=== PATIENT | female | born 1990 | race Caucasian/White ===

== ENCOUNTER 2017-03-16 10:58 | Emergency (ER) | payer OTHER ==
[~2017-03-16] VITALS: Ht 157.5 cm; Wt 65.8 kg
[~2017-03-16 10:58] MED LIST: FLEXERIL 10MG (10 MG PO; IBUPROFEN800 M1 PO; MINASTRIN 24 FE1 KIT PO; MOTRIN800 MG PO; SUMATRIPTAN SUC50 MG
--- NOTE | 2017-03-16 11:58 | ED GI/GU/ABDOMINAL COMPLAINT ---
History of Present Illness General Chief Complaint: Nausea, Vomiting, Diarrhea Stated Complaint: SIB DR. PERALES 6 WEEKS PREGANNT, VOMITING Source: patient, family, old records Exam Limitations: no limitations Vital Signs & Intake/Output Vital Signs & Intake/Output Vital Signs Date Time Temp Pulse Resp B/P B/P Pulse O2 O2 Flow FiO2 Mean Ox Delivery Rate 03/16 1609 98.0 100 16 124/79 99 Room Air 03/16 1455 100.5 ED Intake and Output 03/17 0000 03/16 1200 Intake Total 2000 Output Total Balance 1999 Intake, IV 2000 Patient 65.771 kg Weight Weight Reported by Patient Measurement Method Allergies Coded Allergies: No Known Allergies (03/16/17) Reconcile Medications Ibuprofen 800 MG TABLET 800 MG PO Q6P PRN UTERINE CRAMPING Ondansetron (Zofran Odt) 4 MG TAB.RAPDIS 1 TAB SL TID NAUSEA Triage Note: 6 WEEK FEMALE TO TRIAGE FOR C/C NAUSEA AND VOMITING SINCE O400. PT ADVISED TO COME ED BY OB: DR. CANA[place]. PT'S DAUGHTER HAS FLU AT HOME AND PT IS CURRENTLY ON THIRD DAY OF TAMIFLU. BODY ACHES AND CHILLS. PT 100.4 TEMP IN TRIAGE. Triage Nurses Notes Reviewed? yes ? Y Is pt currently ? No HPI: 26F no PMH, currently 6 weeks presentting with 7 hours of intractable nausea and vomiting. Woke up from sleep at 4am to vomit, and has been unable to keep anything down since. She has significant nausea and abdominal cramping. She denies diarrhea, dysuria, constipation, vaginal bleeding/spotting/discharge. She had a mild fever this morning. She is otherwise well and feels thirsty. Last meal was rice and beans last, SO ate as well and is not sick. Her one year old child was recently diagnosed with flu and patient and family are all on Tamiflu. She denies upper respiratory symptoms. She did not have hyperemesis with last . Past History Travel History Traveled to [place] past 21 day No Medical History Any Pertinent Medical History? 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 No Review of Systems Review of Systems Constitutional: Reports: no symptoms. EENTM: Reports: no symptoms. Respiratory: Reports: no symptoms. Cardiovascular: Reports: no symptoms. GI: Reports: see HPI. Genitourinary: Reports: no symptoms. Musculoskeletal: Reports: no symptoms. Skin: Reports: no symptoms. Neurological/Psychological: Reports: no symptoms. Hematologic/Endocrine: Reports: no symptoms. Immunologic/Allergic: Reports: no symptoms. All Other Systems: Reviewed and Negative Physical Exam Physical Exam General Appearance: well developed/nourished, mild distress Head: atraumatic, normal appearance Eyes: Bilateral: normal appearance, normal inspection. Ears, Nose, Throat, Mouth: dry mucous membranes Neck: normal inspection, supple, full range of motion Respiratory: normal breath sounds, no respiratory distress Cardiovascular: regular rate/rhythm Gastrointestinal: soft, non-tender Back: normal inspection, normal range of motion Extremities: normal range of motion Neurologic/Psych: awake, alert, oriented x 3, normal mood/affect Skin: intact, normal color, warm/dry Core Measures ACS in differential dx? No Sepsis Present: No Sepsis Focused Exam Completed? No Progress Differential Diagnosis: AAA, AMI, appendicitis, biliary colic, bowel obstruction , colon cancer, cholecystitis, diverticulitis, ectopic , endometritis, esophageal varices, gastritis, hepatitis, hernia, hemorrhoids, ischemic bowel, inflamm bowel dis, intrauterine , kidney stone, [place] tear, ovarian cyst, ovarian torsion, pancreatitis, PID/cervicitis, peptic ulcer, PUD/ GERD, perforated viscous, SBO, threatened AB, UTI/pyelo Plan of Care: Orders Procedure Date/time Status URINALYSIS 03/16 1447 Complete Current Medications Sig/Laith Start time Last Medication Dose Stop Time Status Admin Doxylamine Succinate/ 2 TAB ONCE ONE 03/16 1530 CAN Pyridoxine 03/16 1531 (Diclegis) Laboratory Tests 03/16/17 1447: Urinalysis LIGHT H, Urine Color YEL, Urine Clarity HAZY H, Urine pH 7.0, Ur Specific [place] 1.020, Urine Protein TRACE H, Urine Ketones 15 H, Urine Nitrite NEG, Urine Bilirubin NEG, Urine Urobilinogen 0.2, Ur Leukocyte Esterase TRACE H, Ur Microscopic SEDIMENT EXAMINED, Urine RBC RARE, Urine WBC 1-3 H, Ur Epithelial Cells FEW, Urine Bacteria MANY H, Urine Mucus FEW, Urine Hemoglobin NEG, Urine Glucose NEG Improved following Zofran, symptoms remitted and was able to eat and drink. Became more nauseous after, but improved with Zofran and did not vomit. Will discharge hme with PRN Zofran, will follow up with OB tomorrow, instructed to slowly advance diet. Initial ED EKG: none Departure Departure Disposition: HOME OR SELF CARE Condition: Stable Clinical Impression Primary Impression: Acute gastroenteritis Referrals: De CLARK,Josy (PCP/Family) Additional Instructions: Follow up with your rn telemetry tomorrow. Eat and drink slowly, what you can, and what does not make you vomit. If your fever worsens, you cannot eat or drink anything, you have worsening abdominal pain, any vaginal discharge, or any new or worsening symptoms, return to emergency room immediately. Departure Forms: Customer Survey General Discharge Information Prescriptions: Current Visit Scripts Ondansetron (Zofran Odt) 1 TAB SL TID #15 TAB
[2017-03-16 12:20] LABS: ABSOLUTE BASOPHIL COUNT 0 /CUMM (0.0-0.2); ABSOLUTE EOSINOPHIL COUNT 0 /CUMM (0.0-0.7); ABSOLUTE GRANULOCYTE CT 13.8 /CUMM (1.4-6.5); ABSOLUTE LYMPH COUNT 0.4 /CUMM (1.2-3.4); ABSOLUTE MONOCYTE COUNT 0.4 /CUMM (0.10-0.60); BASOPHIL % 0 % (0.0-2.0); EOSINOPHIL % 0.1 % (0-5); GRANULOCYTE % 94.2 % (42.2-75.2); HEMATOCRIT 38.8 % (37-47); MEAN CORPUSCULAR HGB 28.8 PG (27.0-31.0); MEAN CORPUSCULAR HGB CONC 33.4 G/DL (33.0-37.0); MEAN CORPUSCULAR VOLUME 86.3 FL (81.0-99.0); MEAN PLATELET VOLUME 9.5 FL (7.4-10.4); PLATELET COUNT 268 /CUMM (130-400); RBC DISTRIBUTION WIDTH 12.4 % (11.5-14.5)
[2017-03-16 12:38] LABS: WHITE BLOOD CELL COUNT 14.6 /CUMM (4.8-10.8)
[2017-03-16] MEDS ORDERED: ZOFRAN ODT4 M1 SL (15:50)
[2017-03-16 16:09] VITALS: BP 124/79
== END 2017-03-16 16:10 ==
LOC: ERH 10:58
PROVIDERS: Internal Medicine
DX: O99.611 Diseases of the digestive system complicating pregnancy, first trimester (principal); K52.9 Noninfective gastroenteritis and colitis, unspecified; Z3A.01 Less than 8 weeks gestation of pregnancy
CPT/HCPCS: 81001; 87804; 87804-59; 96361; 96374; 96375; J2405; J2765

== ENCOUNTER 2017-11-03 17:00 | Inpatient (IN) | payer OTHER ==
[~2017-11-03] VITALS: Ht 157.5 cm; Wt 73.5 kg
[~2017-11-03 17:00] MED LIST changes: +ZOFRAN ODT4 M1 SL
[2017-11-03 17:51] VITALS: BP 136/86
[2017-11-03] MEDS ORDERED: PRENATABS RX T1 EACH PO (17:54)
[2017-11-03] MEDS ORDERED: B-121000 MC3 PO (17:56)
[2017-11-03] MEDS ORDERED: DHA100 MG PO (17:58)
[2017-11-03 18:28] LABS: ABSOLUTE BASOPHIL COUNT 0 /CUMM (0.0-0.2); ABSOLUTE EOSINOPHIL COUNT 0.1 /CUMM (0.0-0.7); ABSOLUTE GRANULOCYTE CT 8.6 /CUMM (1.4-6.5); ABSOLUTE LYMPH COUNT 2.7 /CUMM (1.2-3.4); ABSOLUTE MONOCYTE COUNT 0.9 /CUMM (0.10-0.60); BASOPHIL % 0.3 % (0.0-2.0); EOSINOPHIL % 0.4 % (0-5); GRANULOCYTE % 70.1 % (42.2-75.2); HEMATOCRIT 33.3 % (37-47); MEAN CORPUSCULAR HGB 29.4 PG (27.0-31.0); MEAN CORPUSCULAR HGB CONC 34.5 G/DL (33.0-37.0); MEAN CORPUSCULAR VOLUME 85.2 FL (81.0-99.0); MEAN PLATELET VOLUME 10.6 FL (7.4-10.4); PLATELET COUNT 209 /CUMM (130-400); RBC DISTRIBUTION WIDTH 13.9 % (11.5-14.5); RED BLOOD CELL CT 3.91 /CUMM (4.20-5.40); WHITE BLOOD CELL COUNT 12.3 /CUMM (4.8-10.8)
--- NOTE | 2017-11-03 18:43 | History & Physical ---
General Information and HPI MD Statement: I have seen and personally examined ADRIA ROY and documented this H&P. The patient is a 26 year old female at [38] weeks and [6] days gestation who presented with a chief complaint of [LOF]. Source of Information: patient Exam Limitations: no limitations History of Present Illness: 26yo, at 38 6/7wks, c/o LOF since 11 AM, denies ctx, no VB , reports GFM. care started at 8 wks, uncomplicated thus far. GBS negative. 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 Past Pregnancies Past Pregnancies: Date of Delivery: 01/29/2016 Gestational Age: 39 4/7wks Weight: 7lb1oz Type of Delivery: vaginal Medical History Neurological: migraine EENT: NONE Cardiovascular: NONE Respiratory: NONE Gastrointestinal: NONE Hepatic: NONE Renal: NONE Musculoskeletal: NONE Psychiatric: anxiety Endocrine: NONE Blood Disorders: NONE Cancer(s): NONE 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 spouse Primary Language: Greek Smoking Status: Never Smoked ETOH Use: denies use Illicit Drug Use: denies illicit drug use Review of Systems Review of Systems Constitutional: Reports: no symptoms. EENTM: Reports: no symptoms. Cardiovascular: Reports: no symptoms. Respiratory: Reports: no symptoms. GI: Reports: no symptoms. Genitourinary: Reports: see HPI. Musculoskeletal: Reports: no symptoms. Skin: Reports: no symptoms. Neurological/Psychological: Reports: no symptoms. Hematologic/Endocrine: Reports: no symptoms. Immunologic/Allergic: Reports: no symptoms. All Other Systems: Reviewed and Negative Exam & Diagnostic Data Last 24 Hrs of Vital Signs/I&O Vital Signs Date Time Temp Pulse Resp B/P B/P Pulse O2 O2 Flow FiO2 Mean Ox Delivery Rate 11/03 1751 136/86 Obstetric Exam Wgt Gained During : 12lb Pelvimetry: adequate Dilation (cm): 0 (FT) Effacement (%): 50 Station: -3 Membranes: SROM Fluid: clear Fundal Height (cm): 38 Multiple Gestation? No Contractions: occasional #1 - FHR Baseline: 140 Category: 1 Estimated Weight: 3500g Presentation: vertex Patient for Induction? No Physical Exam: VSS General: NAD Abdomen: gravid, soft, nontender. Ext: DCT (-) Labs Blood Type & Rh: B positive Antibody Screen: negative Hct/Hgb & Platelets #1: 11.8/37.9%,[id number] Hct/Hgb & Platelets #2: 11.3/37.5%,[id number] Rubella: immune VDRL #1: negative VDRL #2: negative HbsAg: negative HIV #1: negative HIV #2 negative 1 Hr P 3 Hr P/126/115/110 Group B Strep: negative Initial Ultrasound: IUP at 8 wks Anatomy Ultrasound: nl Genetic Testing: nl Last 24 Hrs of Labs/Chalo: Laboratory Tests 11/03/17 1800: RPR Titer/FTA Pending 11/03/17 1800: CBC w Diff NO MAN DIFF REQ, RBC 3.91 L, MCV 85.2, MCH 29.4, MCHC 34.5, RDW 13.9 , MPV 10.6 H, Gran % 70.1, Lymphocytes % 21.8, Monocytes % 7.4, Eosinophils % 0.4, Basophils % 0.3, Absolute Granulocytes 8.6 H, Absolute Lymphocytes 2.7, Absolute Monocytes 0.9 H, Absolute Eosinophils 0.1, Absolute Basophils 0, HIV 1 &2 Ab Western Blot Pending, Urine Color Pending, Urine Clarity Pending, Urine pH Pending, Ur Specific [place] Pending, Urine Protein Pending, Urine Ketones Pending, Urine Nitrite Pending, Urine Bilirubin Pending, Urine Urobilinogen Pending, Ur Leukocyte Esterase Pending, Ur Microscopic Pending, Urine Hemoglobin Pending, Urine Glucose Pending 11/03/17 1709: Membrane Rupture POSITIVE Assessment/Plan Assessment/Plan: 26yo, 38 6/7wks, SROM 1. admit pt, admission labs 2. pain management as needed 3. advise pt to ambulate, will reevaluate, if no spontaneouse labor , will consider cervical ripening. R/B/A of misoprostol d/w pt, she understand and agreed. informed consent obtained. 4. will monitor closely As Ranked By This Provider Problem List: 1. 2. SROM (spontaneous rupture of membranes) Core Measures Venous Thromboembolism VTE Risk Factors / No Mechanical VTE Prophylaxis d/t LowRisk-No Interven Req'd No VTE Pharm Prophylaxis d/t LowRisk-No Interven Req'd Attending MD Review Statement Attending Statement Attending MD Statement: examined this patient, discussed with family, discussed w/nursing
[2017-11-03] MEDS ORDERED: KEFLEX500 M1 PO (19:04)
--- NOTE | 2017-11-03 20:10 | PN- OBGYN ---
Surgical Brief Attending Note Brief Attending Note: pt is resting in bed after ambulating, c/o more LOF, felt some cxts. on TOCO:occasional, FHR cat I d/w pt about misoprostol for cervical ripening, she understand but declined now. stated " i am not sure the exact time of ROM, now that I thought about it, maybe was 3-4 PM" , pt desires to ambulate again, c/o when ambulate she felt more ctxs. risks of prolong ROM d/w pt, she understand. will let pt to ambulate, will reevaluate later.
--- NOTE | 2017-11-03 23:39 | PN- OBGYN ---
Surgical Brief Attending Note Brief Attending Note: pt c/o ctxs pain on TOCO: ctxs q4-5 min ( hard to monitor due to pt's discomfort) VE:/-2( by RN) will continue monitor closely
--- NOTE | 2017-11-04 05:49 | Labor & Delivery Summary ---
Delivery Summary Vaginal Delivery: Vaginal: vertex Episiotomy/Lacerations: Episiotomy/Lacerations: 1ST DEGREE Type: 1ST DEGREE Repair: 3-0 VICRYL Anesthesia: EPIDURAL Placenta: Placenta: spontanteous, normal, 3 vessel Anesthesia: EPIDURAL Baby's Weight: PENDING Apgars - 1 Min: 9 Apgars - 5 Min: 9 Additional Comments: Patient fully dilated, pushed well, spontaneously deliver a viable female in cephalic presentation, KIRTI position, head delivered atraumatically, followed by shoulder and rest of the body without difficulties, baby Place mother's chest , vigorous and cried, cord clamped and cut. Placenta delivered spontaneously, intact, three-vessel cord. Small first-degree laceration repaired with 3-0 Vicryl using standard technique. EBL 200 mL. Patient tolerated the procedure well, she is in recovery room in stable condition. Sponge, needle and instrument counts were correct
[2017-11-05 08:35] LABS: ABSOLUTE BASOPHIL COUNT 0.1 /CUMM (0.0-0.2); ABSOLUTE EOSINOPHIL COUNT 0.1 /CUMM (0.0-0.7); ABSOLUTE GRANULOCYTE CT 7.8 /CUMM (1.4-6.5); ABSOLUTE LYMPH COUNT 3.1 /CUMM (1.2-3.4); ABSOLUTE MONOCYTE COUNT 0.8 /CUMM (0.10-0.60); BASOPHIL % 0.4 % (0.0-2.0); EOSINOPHIL % 0.9 % (0-5); GRANULOCYTE % 66.2 % (42.2-75.2); HEMATOCRIT 35.8 % (37-47); MEAN CORPUSCULAR HGB 28.5 PG (27.0-31.0); MEAN CORPUSCULAR HGB CONC 33.1 G/DL (33.0-37.0); MEAN PLATELET VOLUME 11.3 FL (7.4-10.4); PLATELET COUNT 186 /CUMM (130-400); RBC DISTRIBUTION WIDTH 14.1 % (11.5-14.5); RED BLOOD CELL CT 4.16 /CUMM (4.20-5.40); WHITE BLOOD CELL COUNT 11.8 /CUMM (4.8-10.8)
--- NOTE | 2017-11-05 16:13 | PN- OBGYN ---
Surgical Brief Attending Note Brief Attending Note: pt feeling well. amb / void / connor po. pain well controlled w/ motrin. +bf. afeb, v/ss nad abd soft nt ff rita min lochia ext nt no ed hct 35 a/p ppd 1 s/p , doing well -cont routine pp care -ant d/c home staci
[2017-11-06] MEDS ORDERED: IBUPROFEN800 M1 PO (09:17)
--- NOTE | 2017-11-06 09:23 | PN- Post Delivery/GYN ---
Subjective Subjective: feeling well Review of Systems Constitutional: Denies: no symptoms. EENTM: Denies: blurred vision, double vision, visual changes. Cardiovascular: Denies: chest pain. Respiratory: Denies: cough. Gastrointestinal: Denies: abdominal pain, bloating, diarrhea, nausea, vomiting. Genitourinary: Denies: dysuria. Musculoskeletal: Denies: back pain. Neurological/Psychological: Denies: anxiety, depressed. Objective Last 24 Hrs of Vital Signs/I&O vss Physical Exam General Appearance Alert, Oriented X3, Cooperative, No Acute Distress Cardiovascular Regular Rate Lungs Clear to Auscultation Abdomen Normal Bowel Sounds, Soft, No Tenderness, fundus firm Pelvic (FEMALE) lochia serosanganous Current Medications: Current Medications Sig/Laith Start time Last Medication Dose Route Stop Time Status Admin Acetaminophen 650 MG Q4P PRN 11/04 0545 AC PO Docusate Sodium 100 MG BID PRN 11/04 0545 AC PO Ibuprofen 800 MG Q6P PRN 11/04 0545 AC 11/06 PO 0658 Oxycodone/ 1 TAB Q3P PRN 11/04 0545 AC Acetaminophen PO Assessment/Plan Assessment/Plan ppd #2 vss afebrile plan d/c home Problem List: 1. SROM (spontaneous rupture of membranes) 2. Attending MD Review Statement Attending Statement Attending MD Statement: examined this patient, discussed with family, discussed with nursing
== END 2017-11-06 10:15 | DRG 775 ==
LOC: CBCO 17:00 → GNO 17:44
PROVIDERS: Obstetrics & Gynecology
PROC: 10E0XZZ Delivery of Products of Conception, External Approach (ICD-10-PCS; principal; 2017-11-04)
PROC: 0HQ9XZZ Repair Perineum Skin, External Approach (ICD-10-PCS; principal; 2017-11-04)
DX: O70.0 First degree perineal laceration during delivery (principal); Z3A.39 39 weeks gestation of pregnancy; Z37.0 Single live birth
CPT/HCPCS: GNOP; GNOS; 36415; 81001; 84112; 87389; J7120